=== PATIENT | male | born 1970 | race African-American/Black ===

== ENCOUNTER 2017-09-17 09:03 | Emergency (ER) | payer OTHER ==
[2017-09-17 09:17] VITALS: BP 154/94; PULSE 97; TEMP 98.4; BMI 36.6
--- NOTE | 2017-09-17 10:09 | PDOC ---
History of Present Illness - General Chief Complaint: Injury Stated Complaint: JOB INJURY Time Seen by Provider: 09/17/17 09:39 History Source: Patient Exam Limitations: Clinical Condition - History of Present Illness Initial Comments: 09/17/17 10:04 Patient with no significant past medical history presenting with laceration to right forearm by a glass while at work. report he was lifting of glasses but didn't notice was another glass that cut into the forearm an hour ago. Patient reports last tetanus was last year Timing/Duration: 1 hour Severity: moderate Past History - Past Medical History Allergies/Adverse Reactions: Allergies Allergy/AdvReac Type Severity Reaction Status Date / Time No Known Allergies Allergy Verified 09/17/17 09:36 Home Medications: Ambulatory Orders Metoprolol Succinate [Toprol XL -] 50 mg PO BID 01/30/13 Cephalexin [Keflex] 500 mg PO BID 7 Days #14 capsule 09/17/17 Sulfamethoxazole/Trimethoprim [Bactrim Ds -] 1 tab PO BID #14 tablet 09/17/17 Asthma: Yes HTN: Yes - Suicide/Smoking/Psychosocial Hx Smoking History: Never smoked Have you smoked in the past 12 months: No Hx Alcohol Use: No Drug/Substance Use Hx: No Substance Use Type: None Review of Systems - Review of Systems Able to Perform ROS?: Yes Is the patient limited Maltese proficient: No Constitutional: No: Chills, Diaphoresis, Fever, Loss of Appetite, Malaise, Night Sweats, Weakness, Weight Stable, Unintentional Wgt. Loss, Unexplained wgt Loss, Other HEENTM: No: Eye Pain, Blurred Vision, Tearing, Recent change in vision, Double Vision, Cataracts, Ear Pain, Ocular Prothesis, Ear Discharge, Nose Pain, Nose Congestion, Tinnitus, Nose Bleeding, Hearing Loss, Throat Pain, Throat Swelling , Mouth Pain, Dental Problems, Difficulty Swallowing, Mouth Swelling, Other Respiratory: No: Cough, Orthopnea, Shortness of Breath, SOB with Exertion, SOB at Rest, Stridor, Wheezing, Productive cough, Hemoptysis, Other Cardiac (ROS): No: Chest Pain, Edema, Irregular Heart Rate, Lightheadedness, Palpitations, Syncope, Chest Tightness, Other ABD/GI: No: Abdominal Distended, Abd. Pain w/ defecation, Blood Streaked Bowels , Constipated, Diarrhea, Difficulty Swallowing, Nausea, Poor Appetite, Poor Fluid Intake, Rectal Bleeding, Vomiting, Indigestion, Abdominal cramping, Tarry Stools, Other Musculoskeletal: Yes: Muscle Pain (over laceration). No: Back Pain, Gout, Joint Pain, Joint Swelling, Muscle Weakness, Neck Pain, Joint Stiffness, Other Integumentary: Yes: See HPI Neurological: No: Headache, Numbness, Paresthesia, Pre-Existing Deficit, Seizure , Tingling, Tremors, Weakness, Unsteady Gait, Ataxia, Dizziness, Other All Other Systems: Reviewed and Negative *Physical Exam - Vital Signs Last Vital Signs Temp Pulse Resp BP Pulse Ox 98.4 F 97 H 16 154/94 99 09/17/17 09:15 09/17/17 09:15 09/17/17 09:15 09/17/17 09:15 09/17/17 09:15 - Physical Exam Comments: 09/17/17 10:06 GENERAL: Well developed, well nourished. Awake and alert. No acute distress. HEENT: Normocephalic, atraumatic. PERRLA, EOMI. No conjunctival pallor. Sclera are non- icteric. Moist mucous membranes. Oropharynx is clear. NECK: Supple. Full ROM. No JVD. Carotid pulses 2+ and symmetric, without bruits. No thyromegaly. No lymphadenopathy. CARDIOVASCULAR: Regular rate and rhythm. No murmurs, rubs, or gallops. Distal pulses are 2+ and symmetric. PULMONARY: No evidence of respiratory distress. Lungs clear to auscultation bilaterally. No wheezing, rales or rhonchi. ABDOMINAL: Soft. Non-tender. Non-distended. No rebound or guarding. No organomegaly. Normoactive bowel sounds. MUSCULOSKELETAL Normal range of motion at all joints. No bony deformities or tenderness. No CVA tenderness. EXTREMITIES: No cyanosis. No clubbing. No edema. No calf tenderness. SKIN: 3 centimeters superficial laceration to the lateral side of right forearm minimal bleeding area Warm and dry. Normal capillary refill. NEUROLOGICAL: Alert, awake, appropriate. Cranial nerves 2-12 intact. No deficits to light touch and temperature in face, upper extremities and lower extremities. No motor deficits in the in face, upper extremities and lower extremities. Normoreflexic in the upper and lower extremities. Normal speech. Toes are down- going bilaterally. Gait is normal without ataxia. PSYCHIATRIC: Cooperative. Good eye contact. Appropriate mood and affect. General Appearance: Yes: Nourished, Appropriately Dressed. No: Apparent Distress Procedures - Laceration/Wound Repair Right Upper Lateral Proximal Arm Wound Length: 2.6 to 5.0 cm Wound Explored: no foreign body present Wound's Depth, Shape: irregular Irrigated w/ Saline: Yes Betadine Prep: Yes Anesthesia: 1% Lidocaine Amount of Anesthetic (ccs): 3 Wound Repaired With: Sutures Suture Size/Type: 4:0, nylon Number of Sutures: 5 Layer Closure: No Sterile Dressing Applied: Yes Splint Applied: No Sling Applied: No Progress: 09/17/17 10:09 3 cm superficial laceration to right forearm with Betadine. Wound closed with 5 interrupted sutures 4-0 nylon after one infiltrated with 3 mL 1% lidocaine. Bacitracin applied to wound and wound covered with adhesive bandage. Patient tolerated procedure well Medical Decision Making - Medical Decision Making 09/17/17 10:11 Patient with 3 cm superficial laceration to right forearm since today. Wound care done and tetanus vaccine up to date and wound closed with 5 interrupted sutures were normal postprocedure neuro exam *DC/Admit/Observation/Transfer Diagnosis at time of Disposition: Laceration of right forearm Qualifiers: Encounter type: initial encounter Qualified Code(s): S51.811A - Laceration without foreign body of right forearm, initial encounter - Discharge Dispostion Disposition: HOME Condition at time of disposition: Stable Decision to Admit order: No - Prescriptions Prescriptions: Cephalexin [Keflex] 500 mg PO BID 7 Days #14 capsule Sulfamethoxazole/Trimethoprim [Bactrim Ds -] 1 tab PO BID #14 tablet - Referrals Referrals: Pola Gotti MD [Primary Care Provider] - - Patient Instructions Printed Discharge Instructions: How to Care for a Laceration After Repair Additional Instructions: keep wound clean. apply bacitracin or neosporin to wound twice/ day until healed. follow-up in 7 days for suture removal - Post Discharge Activity
== END 2017-09-17 10:20 | disposition home or self-care (01) ==
LOC: JERFT 09:03
PROC: 0HQDXZZ Repair Right Lower Arm Skin, External Approach (ICD-10-PCS; principal; 2017-09-17)
DX: S51.811A Laceration without foreign body of right forearm, initial encounter (principal); W25.XXXA Contact with sharp glass, initial encounter; Y93.H3 Activity, building and construction; Y92.69 Other specified industrial and construction area as the place of occurrence of the external cause; Y99.0 Civilian activity done for income or pay; I10 Essential (primary) hypertension; J45.909 Unspecified asthma, uncomplicated
CPT/HCPCS: 99281-25

== ENCOUNTER 2017-09-25 10:04 | Emergency (ER) | payer OTHER ==
[2017-09-25 10:09] VITALS: BP 122/76; PULSE 77; TEMP 98.5; BMI 36.6
--- NOTE | 2017-09-25 10:27 | PDOC ---
Suture Removal/Wound Check HPI - History of Present Illness Chief Complaint: Suture/Staple Removal(Here) Stated Complaint: STAPLE REMOVAL Time Seen by Provider: 09/25/17 10:09 History Source: Yes: Patient Exam Limitations: Yes: No Limitations Treated at: [facility] Date of Last ED visit: 09/20/15 - Previous ED Treatment Type of procedure performed on last visit: Yes: Laceration Repair Tetanus Immunization: Yes: Up to Date Past History - Past Medical History Allergies/Adverse Reactions: Allergies Allergy/AdvReac Type Severity Reaction Status Date / Time No Known Allergies Allergy Verified 09/25/17 10:08 Home Medications: Ambulatory Orders Metoprolol Succinate [Toprol XL -] 50 mg PO BID 01/30/13 Cephalexin [Keflex] 500 mg PO BID 7 Days #14 capsule 09/17/17 Sulfamethoxazole/Trimethoprim [Bactrim Ds -] 1 tab PO BID #14 tablet 09/17/17 Asthma: Yes COPD: No HTN: Yes - Suicide/Smoking/Psychosocial Hx Smoking History: Never smoked Have you smoked in the past 12 months: No Hx Alcohol Use: No Drug/Substance Use Hx: No Substance Use Type: None *Physical Exam - Vital Signs Last Vital Signs Temp Pulse Resp BP Pulse Ox 98.5 F 77 18 122/76 99 09/25/17 10:06 09/25/17 10:06 09/25/17 10:06 09/25/17 10:06 09/25/17 10:06 - Physical Exam General Appearance: Yes: Nourished, Appropriately Dressed Integumentary: positive: Other (right forearm with partialy healed laceration, no drainage or evidence of infection, 4 sutures intact ) Neurologic: positive: Fully Oriented, Alert, Normal Mood/Affect, Normal Response , Motor Strength 5/5 Medical Decision Making - Medical Decision Making 09/25/17 10:26 cc: suture removal right arm sutures will remove 5 simple interrupted sutures, wound with some dehisence, no redness no drainage , will approximate with steri strips sterile dressing placed wound care discussed with pt and he agrees with plan *DC/Admit/Observation/Transfer Diagnosis at time of Disposition: Visit for suture removal - Discharge Dispostion Disposition: HOME Condition at time of disposition: Good - Referrals Referrals: Pola Gotti MD [Primary Care Provider] - - Patient Instructions Printed Discharge Instructions: DI for Suture Removal Additional Instructions: keep dry keep dressing in place for at least 2-3 days then change daily and cover until well healed - Post Discharge Activity
== END 2017-09-25 10:41 | disposition home or self-care (01) ==
LOC: JERFT 10:04
DX: Z48.817 Encounter for surgical aftercare following surgery on the skin and subcutaneous tissue (principal); Z48.02 Encounter for removal of sutures
CPT/HCPCS: 99281-25

== ENCOUNTER 2018-02-12 22:01 | Emergency (ER) | payer OTHER ==
[2018-02-12 22:13] VITALS: BMI 34.2
[2018-02-12] MEDS ORDERED: ALBUTEROL SO4 2.5/IPRATROPIUM 0.5 INH SOL 3 ML VIAL.NEB. NEB ONE (22:35)
[2018-02-12] MEDS ORDERED: FLUTICASONE PROP 0.05% 16 GM NASAL SPRAY NS ONE (22:35)
--- NOTE | 2018-02-12 22:35 | PDOC ---
History of Present Illness - General History Source: Patient Exam Limitations: No Limitations - History of Present Illness Initial Comments: 02/12/18 22:46 The patient is a 47 year old male, with a significant PMH of hypertension and asthma, who presents to the emergency department with runny nose, cough and throat pain s/p exposure to bleach and ammonia cleaning solution. The patient states he came home from work and found a mop in a bucket of hot water, bleach and ammonia cleaning solution in the kitchen. The patient states he started cleaning for approx 5-10 minutes as he did not know the cleaning solution was composed of bleach and ammonia when he noted the runny nose, cough and sore throat. The patient also reports one episodes of vomiting (non bloody, non bilious). The patient states he disposed of the cleaning mixture, exited the house and decided to come to the ED for evaluation. The patient denies chest pain, shortness of breath, headache and dizziness. Denies fever, chills, diarrhea and constipation. Denies dysuria, frequency, urgency and hematuria. Allergies: shellfish derived <Tristan Main - Last Filed: 02/12/18 22:46> <Maia Snell - Last Filed: 02/13/18 00:21> - General Chief Complaint: Respiratory Stated Complaint: EXPOSURE TO CHEMICALS, VOMITING Time Seen by Provider: 02/12/18 22:35 Past History <Tristan Main - Last Filed: 02/12/18 22:46> - Past Medical History Asthma: Yes COPD: No HTN: Yes - Suicide/Smoking/Psychosocial Hx Smoking History: Never smoked Have you smoked in the past 12 months: No Information on smoking cessation initiated: No Hx Alcohol Use: No Drug/Substance Use Hx: No Substance Use Type: None <Maia Snell - Last Filed: 02/13/18 00:21> - Past Medical History Allergies/Adverse Reactions: Allergies Allergy/AdvReac Type Severity Reaction Status Date / Time shellfish derived Allergy Verified 02/12/18 22:09 Home Medications: Ambulatory Orders NK [No Known Home Medication] 02/12/18 Review of Systems - Review of Systems Comments:: 02/12/18 22:47 GENERAL/CONSTITUTIONAL: No fever or chills. No weakness. HEAD, EYES, EARS, NOSE AND THROAT: (+) Sore throat. No change in vision. No ear pain or discharge. CARDIOVASCULAR: No chest pain or shortness of breath. RESPIRATORY: (+) Cough. No wheezing, or hemoptysis. GASTROINTESTINAL: (+) Nausea. (+) Vomiting. No diarrhea or constipation. GENITOURINARY: No dysuria, frequency, or change in urination. MUSCULOSKELETAL: No joint or muscle swelling or pain. No neck or back pain. SKIN: No rash NEUROLOGIC: No headache, vertigo, loss of consciousness, or change in strength/ sensation. ENDOCRINE: No increased thirst. No abnormal weight change. HEMATOLOGIC/LYMPHATIC: No anemia, easy bleeding, or history of blood clots. ALLERGIC/IMMUNOLOGIC: No hives or skin allergy. <Tristan Main Last Filed: 02/12/18 22:46> *Physical Exam - Vital Signs Last Vital Signs Temp Pulse Resp BP Pulse Ox 98.3 F 88 18 139/92 98 02/12/18 22:10 02/12/18 22:10 02/12/18 22:10 02/12/18 22:10 02/12/18 22:10 - Physical Exam Comments: 02/12/18 22:47 GENERAL: Awake, alert, and fully oriented, in no acute distress HEAD: No signs of trauma EYES: PERRLA, EOMI, sclera anicteric, conjunctiva clear ENT: (+) Nasal passage edema noted. Auricles normal inspection, hearing grossly normal, nares patent, oropharynx clear without exudates. Moist mucosa NECK: Normal ROM, supple, no lymphadenopathy, JVD, or masses LUNGS: Breath sounds equal, clear to auscultation bilaterally. No wheezes, and no crackles HEART: Regular rate and rhythm, normal S1 and S2, no murmurs, rubs or gallops ABDOMEN: Soft, nontender, normoactive bowel sounds. No guarding, no rebound. No masses EXTREMITIES: Normal range of motion, no edema. No clubbing or cyanosis. No cords, erythema, or tenderness NEUROLOGICAL: Cranial nerves II through XII grossly intact. Normal speech, normal gait SKIN: Warm, Dry, normal turgor, no rashes or lesions noted. <Tristan Main Last Filed: 02/12/18 22:46> - Vital Signs Last Vital Signs Temp Pulse Resp BP Pulse Ox 98.3 F 88 18 139/92 98 02/12/18 22:10 02/12/18 22:10 02/12/18 22:10 02/12/18 22:10 02/12/18 22:10 <Maia Snell - Last Filed: 02/13/18 00:21> Moderate Sedation - Procedure Monitoring Vital Signs: Procedure Monitoring Vital Signs Temperature 98.3 F 02/12/18 22:10 Pulse Rate 88 02/12/18 22:10 Respiratory Rate 18 02/12/18 22:10 Blood Pressure 139/92 02/12/18 22:10 O2 Sat by Pulse Oximetry (%) 98 02/12/18 22:10 <Tristan Main - Last Filed: 02/12/18 22:46> - Procedure Monitoring Vital Signs: Procedure Monitoring Vital Signs Temperature 98.3 F 02/12/18 22:10 Pulse Rate 88 02/12/18 22:10 Respiratory Rate 18 02/12/18 22:10 Blood Pressure 139/92 02/12/18 22:10 O2 Sat by Pulse Oximetry (%) 98 02/12/18 22:10 <Maia Snell - Last Filed: 02/13/18 00:21> *DC/Admit/Observation/Transfer - Attestations Scribe Attestion: 02/12/18 22:48 Documentation prepared by Tristan Main, acting as biomedical manager for Maia Snell MD. <Tristan Main - Last Filed: 02/12/18 22:46> - Discharge Dispostion Decision to Admit order: No <Maia Snell - Last Filed: 02/13/18 00:21> Diagnosis at time of Disposition: Chlorine gas exposure - Discharge Dispostion Disposition: HOME Condition at time of disposition: Improved - Patient Instructions Printed Discharge Instructions: DI for Inhalation Injury
[2018-02-13 00:30] VITALS: BP 144/77; PULSE 81; TEMP 98.2
== END 2018-02-13 00:30 | disposition home or self-care (01) ==
LOC: JER 22:01
PROC: 3E0F7GC Introduction of Other Therapeutic Substance into Respiratory Tract, Via Natural or Artificial Opening (ICD-10-PCS; principal; 2018-02-12)
DX: Z77.018 Contact with and (suspected) exposure to other hazardous metals (principal); X58.XXXA Exposure to other specified factors, initial encounter; Y93.89 Activity, other specified; Y92.89 Other specified places as the place of occurrence of the external cause; I10 Essential (primary) hypertension; J45.909 Unspecified asthma, uncomplicated
CPT/HCPCS: 99281-25

== ENCOUNTER 2019-09-20 12:21 | Emergency (ER) | payer OTHER ==
--- NOTE | 2019-09-20 13:06 | PDOC ---
History of Present Illness - General Chief Complaint: Laceration Stated Complaint: LAC LT ARM Time Seen by Provider: 09/20/19 12:31 - History of Present Illness Initial Comments: 09/20/19 13:02 48-year-old male without comorbidities presents for evaluation of a laceration on his left arm. Patient was working when he lacerated his left arm when reaching over a large piece of broken glass. The glass did not break on his skin glass was already broken. He is current on tetanus Past History - Medical History Allergies/Adverse Reactions: Allergies Allergy/AdvReac Type Severity Reaction Status Date / Time shellfish derived Allergy Verified 09/20/19 12:32 Home Medications: Ambulatory Orders NK [No Known Home Medication] 02/12/18 Asthma: Yes COPD: No HTN: Yes - Psycho-Social/Smoking History Smoking History: Never smoked Have you smoked in the past 12 months: No Information on smoking cessation initiated: No - Substance Abuse Hx (Audit-C & DAST Scrn) How often the patient has a drink containing alcohol: Never Score: In Men: 4 or > Positive; In Women: 3 or > Positive: 0 Screen Result (Pos requires Nsg. Audit-10AR): Negative In the last yr the pt used illegal drug/Rx for NonMed reason: No Score: Yes response is considered Positive: 0 Screen Result (Positive result requires Nsg. DAST-10): Negative Review of Systems - Review of Systems Integumentary: Yes: See HPI (Laceration) *Physical Exam - Vital Signs Last Vital Signs Temp Pulse Resp BP Pulse Ox 98.5 F 85 17 128/99 99 09/20/19 12:31 09/20/19 12:31 09/20/19 12:31 09/20/19 12:31 09/20/19 12:31 - Physical Exam 09/20/19 13:03 There is a 5 cm linear laceration on the superior lateral aspect of the left upper forearm. Exposing subcutaneous fat. There are no gross sensorimotor deficits in the upper extremity neurovascular intact. Medical Decision Making - Medical Decision Making 09/20/19 13:03 My laceration repair My patient understandingThe wound was anesthetized with 1% lidocaine without epinephrine. Explored to its base in a bloodless field without any identification of foreign body. Copiously irrigated with normal saline. Edges approximated using 4-0 Prolene in a simple interrupted fashion 9 sutures placed. . Dry sterile dressing was placed. I have reviewed the pathophysiology with the patient. They are in agreement with the treatment plan all questions were answered to their satisfaction. Understanding for follow-up without fail was also conveyed to the patient. Again they are in agreement. Discharge - Discharge Information Problems reviewed: Yes Clinical Impression/Diagnosis: Laceration of forearm, left Condition: Stable Disposition: HOME - Admission No - Follow up/Referral Referrals: Farzad Everett DO [Staff Physician] - - Patient Discharge Instructions Additional Instructions: Please keep the dressing on for the next 48 hours. After 48 hours you may remove the dressing wash the area with soap and water and leave it open to air. If you must work please cover the area with a dry sterile dressing such as a large Band-Aid. Keep the area open to air as much as possible. Return to the emergency room for any worsening symptoms or concern for infection such as redness, swelling, increasing pain, or drainage. Other than that sutures out in 10 Tylenol and Motrin as directed for pain. - Post Discharge Activity
[2019-09-20 13:43] VITALS: BP 128/99; PULSE 85; TEMP 98.5; BMI 31.3
== END 2019-09-20 13:54 | disposition home or self-care (01) ==
LOC: JERFT 12:21
DX: S51.812A Laceration without foreign body of left forearm, initial encounter (principal)
CPT/HCPCS: 99282-25

== ENCOUNTER 2019-10-09 09:01 | Emergency (ER) | payer OTHER ==
[2019-10-09 09:05] VITALS: BP 132/88; PULSE 96; TEMP 98.3; BMI 33.9
--- NOTE | 2019-10-09 09:22 | PDOC ---
Suture Removal/Wound Check HPI - History of Present Illness Chief Complaint: Suture/Staple Removal(Here) Stated Complaint: SUTURE REMOVAL (LFT ARM) Time Seen by Provider: 10/09/19 09:06 History Source: Yes: Patient Exam Limitations: Yes: Clinical Condition Treated at: [facility] Date of Last ED visit: 09/20/19 - Previous ED Treatment Type of procedure performed on last visit: Yes: Laceration Repair Tetanus Immunization: Yes: Up to Date Antibiotics Prescribed: No Past History - Medical History Allergies/Adverse Reactions: Allergies Allergy/AdvReac Type Severity Reaction Status Date / Time shellfish derived Allergy Verified 10/09/19 09:03 Home Medications: Ambulatory Orders NK [No Known Home Medication] 02/12/18 Asthma: Yes COPD: No HTN: Yes - Immunization History Immunization Up to Date: Yes - Psycho-Social/Smoking History Smoking History: Never smoked Have you smoked in the past 12 months: No - Substance Abuse Hx (Audit-C & DAST Scrn) How often the patient has a drink containing alcohol: Never Score: In Men: 4 or > Positive; In Women: 3 or > Positive: 0 Screen Result (Pos requires Nsg. Audit-10AR): Negative In the last yr the pt used illegal drug/Rx for NonMed reason: No Score: Yes response is considered Positive: 0 Screen Result (Positive result requires Nsg. DAST-10): Negative Suture Removal/Wound Check PE - Physical Exam Laceration/Wound Check Symptoms: reports: None. denies: Pain, Fever, Chills, Redness, Discharge, Bleeding Current Severity Level: None Maximum Severity Level: None Location of Laceration/Wound: left: Forearm Pain Radiation: None *Review of Systems - Review of Systems Able to Perform ROS?: Yes Constitutional: No: Chills, Fever, Malaise HEENTM: No: Symptoms Reported, See HPI, Eye Pain, Blurred Vision, Tearing, Recent change in vision, Double Vision, Cataracts, Ear Pain, Ocular Prothesis, Ear Discharge, Nose Pain, Nose Congestion, Tinnitus, Nose Bleeding, Hearing Loss, Throat Pain, Throat Swelling, Mouth Pain, Dental Problems, Difficulty Swallowing, Mouth Swelling, Other Respiratory: No: Symptoms reported, See HPI, Cough, Orthopnea, Shortness of Breath, SOB with Exertion, SOB at Rest, Stridor, Wheezing, Productive cough, Hemoptysis, Other Cardiac (ROS): No: Symptoms Reported Musculoskeletal: No: Symptoms Reported, See HPI, Muscle Pain (Left forearm) Integumentary: Yes: Symptoms Reported, See HPI, Other (Laceration to left forearm with sutures in place) Neurological: No: Paresthesia, Tingling, Weakness All Other Systems: Reviewed and Negative *Physical Exam - Vital Signs Last Vital Signs Temp Pulse Resp BP Pulse Ox 98.3 F 96 H 20 132/88 100 10/09/19 09:03 10/09/19 09:03 10/09/19 09:03 10/09/19 09:03 10/09/19 09:03 - Physical Exam General Appearance: Yes: Nourished, Appropriately Dressed, Obese. No: Apparent Distress Respiratory/Chest: negative: Respiratory Distress, Accessory Muscle Use Musculoskeletal: positive: Normal Inspection Extremity: positive: Normal Inspection, Other (Well-healed 5 cm laceration to lateral aspect of the left proximal forearm with [address]. No skin erythema, no wound dehiscence or evidence of wound infection. No discharge from wound site) Integumentary: positive: Normal Color, Other (Well-healed 5 cm laceration to lateral aspect of the left proximal forearm with [address]. No skin erythema, no wound dehiscence or evidence of wound infection. No discharge from wound site) Neurologic: positive: Fully Oriented, Alert, Normal Mood/Affect, Normal Response Medical Decision Making - Medical Decision Making 10/09/19 09:20 Patient with no significant past medical history present for suture removal status post present over 2 weeks ago with laceration to left forearm with a broken glass. Patient up-to-date on tetanus vaccine. Sutures placed on last visit and patient advised to follow-up in 10 days for suture removal but patient never followed up until now. Patient reported he never followed up because he has been working and did not have the time to go have sutures removed. Denies redness to skin area, discharge from wound site or pain due to wound site. Denies any other symptoms Exam significant for Well-healed 5 cm laceration to lateral aspect of the left proximal forearm with [address] No skin erythema, no wound dehiscence or evidence of wound infection. No discharge from wound site. Sutures removed with suture removal kit without complication. Bacitracin applied to wound and wound covered with adhesive bandage. Patient educated on continues home wound care until fully healed. Patient stable for discharge with PCP follow-up as needed Discharge - Discharge Information Problems reviewed: Yes Clinical Impression/Diagnosis: Visit for suture removal Laceration of forearm, left Qualifiers: Encounter type: subsequent encounter Qualified Code(s): S51.812D - Laceration without foreign body of left forearm, subsequent encounter Condition: Improved Disposition: HOME - Admission No - Follow up/Referral - Patient Discharge Instructions Patient Printed Discharge Instructions: DI for Suture Removal Additional Instructions: Continue applying bacitracin or Neosporin to wound twice is on a fully healed. Follow-up with your primary care as needed - Post Discharge Activity
== END 2019-10-09 10:01 | disposition home or self-care (01) ==
LOC: JERFT 09:01
DX: Z48.02 Encounter for removal of sutures (principal)
CPT/HCPCS: 99281-25

== ENCOUNTER 2023-06-11 14:41 | Emergency (ER) | payer OTHER ==
[2023-06-11 15:02] VITALS: BP 146/94; PULSE 90; RESP 17; TEMP 97.9; BMI 35.8
== END 2023-06-11 17:00 | disposition home or self-care (01) ==
LOC: JERFT 14:41
PROC: 0HQFXZZ Repair Right Hand Skin, External Approach (ICD-10-PCS; principal; 2023-06-11)
DX: S61.214A Laceration without foreign body of right ring finger without damage to nail, initial encounter (principal); W25.XXXA Contact with sharp glass, initial encounter
CPT/HCPCS: 73140-TC-RT-FY; 99283-25

== ENCOUNTER 2023-08-12 08:04 | Emergency (ER) | payer OTHER ==
[2023-08-12 08:16] VITALS: BP 139/91; PULSE 99; RESP 18; TEMP 98.5; BMI 34.4
== END 2023-08-12 10:32 | disposition home or self-care (01) ==
LOC: JERFT 08:04
DX: S69.91XA Unspecified injury of right wrist, hand and finger(s), initial encounter (principal); W22.09XA Striking against other stationary object, initial encounter
CPT/HCPCS: 73130-TC-RT-FY; 99283-25